=== PATIENT | female | born 1985 | race Two or more races ===

== ENCOUNTER 2019-06-11 11:11 | Emergency (ER) | payer MEDICAID ==
[~2019-06-11] VITALS: Ht 154.9 cm; Wt 63.0 kg
--- NOTE | 2019-06-11 12:07 | NUR ---
ED Nurse Note: PT JUST PLACED IN ROOM BY TRIAGE NURSE. PT WALKED IN TO ER TODAY FROM HOME. AOX4. PT C/O INTERMITTENT RIGHT UPPER QUADRANT PAIN, 6/10. PT DENIES ANY PAIN AT THIS TIME. PT DENIES NAUSEA, VOMITING, OR DIARRHEA. ACTIVE BOWEL SOUNDS IN ALL QUADRANTS. ABDOMEN NONDISTENDED AND NONTENDER TO PALPATION. LAST BM X THIS AM WHICH PT STATES WAS FORMED.
[2019-06-11 12:10] VITALS: BP 124/88
--- NOTE | 2019-06-11 12:28 | Emergency Room Report ---
History of Present Illness General Chief Complaint: Abdominal Pain Source: Patient Present Illness HPI 33-year-old female presents to the emergency department complaining of 4-day history of right upper abdominal pain that comes and goes. Patient reports currently she has a 2 out of 10 severity however intermittently she will have 6- 7 out of 10 in severity discomfort in the right upper quadrant. Patient denies changes with oral intake she reports some nausea denies vomiting denies blood in the stool or black tarry stools. Patient denies constipation or diarrhea. Patient does report possibility of being she is currently actively trying to be . Denies dysuria, hematuria or urinary frequency. Patient denies fevers, chills, severe abdominal tenderness, recent travel or ill contacts with similar symptoms. Denies surgical history of the abdomen. No other aggravating or relieving factors. Allergies: Coded Allergies: No Known Allergies (Unverified , 06/11/19) Patient History Past Medical History: see triage record Past Surgical History: none Pertinent Family History: none Last Menstrual Period: 05/14/19 Reviewed Nursing Documentation: PMH: Agreed; PSxH: Agreed Nursing Documentation-PMH Past Medical History: No Stated History Review of Systems All Other Systems: negative except mentioned in HPI Physical Exam Vital Signs Date Time Temp Pulse Resp B/P (MAP) Pulse Ox O2 Delivery O2 Flow Rate FiO2 06/11/19 11:24 98.2 85 18 128/93 (105) 98 Room Air Sp02 EP Interpretation: reviewed, normal General Appearance: no apparent distress, alert, GCS 15, non-toxic Head: normocephalic, atraumatic Eyes: bilateral eye normal inspection, bilateral eye PERRL ENT: hearing grossly normal, normal voice Neck: full range of motion Respiratory: lungs clear, normal breath sounds, speaking full sentences Cardiovascular #1: regular rate, rhythm Gastrointestinal: normal bowel sounds, non tender, soft, non-distended, no guarding Rectal: deferred Genitourinary: normal inspection, no CVA tenderness Musculoskeletal: back normal, gait/station normal, normal range of motion, non- tender Neurologic: alert, oriented x3, responsive, motor strength/tone normal, sensory intact, speech normal, grossly normal Psychiatric: judgement/insight normal Skin: no rash Medical Decision Making PA Attestation Dr. Mcwilliams is my supervising Physician whom patient management has been discussed with. Diagnostic Impression: Primary Impression: Abdominal pain Qualified Codes: R10.11 - Right upper quadrant pain Additional Impression: UTI (urinary tract infection) Qualified Codes: N30.01 - Acute cystitis with hematuria ER Course 33-year-old female presents to the emergency department complaining of 4-day history of right upper abdominal pain that comes and goes. Patient reports currently she has a 2 out of 10 severity however intermittently she will have 6- 7 out of 10 in severity discomfort in the right upper quadrant. Patient denies changes with oral intake she reports some nausea denies vomiting denies blood in the stool or black tarry stools. Patient denies constipation or diarrhea. Patient does report possibility of being she is currently actively trying to be . Denies dysuria, hematuria or urinary frequency. Patient denies fevers, chills, severe abdominal tenderness, recent travel or ill contacts with similar symptoms. Denies surgical history of the abdomen. No other aggravating or relieving factors. Ddx considered but are not limited to Diverticulitis, acute appy, diarrhea,UC, PUD, GE, pancreatitis, gallstone, ovarian torsion, ectopic , PID tubo-ovarian abscess. Vital signs: are WNL, pt. is afebrile H&PE are most consistent with Possible Gallbladder etiology, NAD, non-toxic in appearance. No evidence to suggest significant dehydration. Will r/o ORDERS: -CBC, CMP, LIPASE: WBC's of 12.9 otherwise WNL -UA: Consistent with UTI- TNTC WBC's and RBC's. moderate bacteria -URINE HCG:Negative - Abdominal US Complete: WNL ED INTERVENTIONS: - none. -I do not identify an emergent condition at this time. With current presentation , pt. is stable for close outpatient follow up and conservative treatment. D/ w pt. to return promptly to ED with worsening or new symptoms.- Pt. verbalizes' understanding and agreement with proposed treatment plan. DISCHARGE: At this time pt. is stable for d/c to home. Will provide printed patient care instructions, and any necessary prescriptions. Care plan and follow up instructions have been discussed with the patient prior to discharge. Labs Test 06/11/19 12:26 White Blood Count 12.9 K/UL (4.8-10.8) Red Blood Count 4.86 M/UL (4.20-5.40) Hemoglobin 15.1 G/DL (12.0-16.0) Hematocrit 44.8 % (37.0-47.0) Mean Corpuscular Volume 92 FL (80-99) Mean Corpuscular Hemoglobin 31.1 PG (27.0-31.0) Mean Corpuscular Hemoglobin Concent 33.7 G/DL (32.0-36.0) Red Cell Distribution Width 11.0 % (11.6-14.8) Platelet Count 282 K/UL (150-450) Mean Platelet Volume 6.3 FL (6.5-10.1) Neutrophils (%) (Auto) 81.6 % (45.0-75.0) Lymphocytes (%) (Auto) 12.9 % (20.0-45.0) Monocytes (%) (Auto) 4.8 % (1.0-10.0) Eosinophils (%) (Auto) 0.2 % (0.0-3.0) Basophils (%) (Auto) 0.5 % (0.0-2.0) Urine Color Pale yellow Urine Appearance Cloudy Urine pH 6 (4.5-8.0) Urine Specific [place] 1.015 (1.005-1.035) Urine Protein Negative (NEGATIVE) Urine Glucose (UA) Negative (NEGATIVE) Urine Ketones Negative (NEGATIVE) Urine Blood 5+ (NEGATIVE) Urine Nitrite Negative (NEGATIVE) Urine Bilirubin Negative (NEGATIVE) Urine Urobilinogen Normal MG/DL (0.0-1.0) Urine Leukocyte Esterase 3+ (NEGATIVE) Urine RBC Tntc /HPF (0 - 2) Urine WBC Tntc /HPF (0 - 2) Urine Squamous Epithelial Cells Many /LPF (NONE/OCC) Urine Bacteria Moderate /HPF (NONE) Urine HCG, Qualitative Negative (NEGATIVE) Sodium Level 139 MMOL/L (136-145) Potassium Level 3.8 MMOL/L (3.5-5.1) Chloride Level 102 MMOL/L (98-107) Carbon Dioxide Level 27 MMOL/L (21-32) Anion Gap 10 mmol/L (5-15) Blood Urea Nitrogen 12 mg/dL (7-18) Creatinine 0.6 MG/DL (0.55-1.30) Estimat Glomerular Filtration Rate > 60 mL/min (>60) Glucose Level 99 MG/DL (74-106) Calcium Level 9.7 MG/DL (8.5-10.1) Total Bilirubin 0.6 MG/DL (0.2-1.0) Aspartate Amino Transf (AST/SGOT) 17 U/L (15-37) Alanine Aminotransferase (ALT/SGPT) 15 U/L (12-78) Alkaline Phosphatase 126 U/L (46-116) Total Protein 8.4 G/DL (6.4-8.2) Albumin 4.4 G/DL (3.4-5.0) Globulin 4.0 g/dL Albumin/Globulin Ratio 1.1 (1.0-2.7) Lipase 125 U/L (73-393) CT/MRI/US Diagnostic Results CT/MRI/US Diagnostic Results : Imaging Test Ordered: ABD US Complete Impression "Impression: Negative " -Per official radiology report- Please see report for specific details. Last Vital Signs Date Time Temp Pulse Resp B/P (MAP) Pulse Ox O2 Delivery O2 Flow Rate FiO2 06/11/19 12:10 82 16 Room Air 06/11/19 12:10 98.4 124/88 97 Disposition: HOME, SELF-CARE Condition: Stable Scripts Nitrofurantoin Monohyd/M-Cryst* (MACROBID 100 MG*) 100 Mg Capsule 100 MG ORAL EVERY 12 HOURS for 5 Days, #10 CAP Prov: Catie Ladd 06/11/19 Patient Instructions: Abdominal Pain, Adult, Urinary Tract Infection, Easy-to- Read Additional Instructions: Take medications as directed. Follow up with a Primary Care Provider in 3-5 days, even if your symptoms have resolved. --Please review list of primary care clinics, if you do not already have a primary care provider Return sooner to ED if new symptoms occur, or current symptoms become worse. - Please note that this Emergency Department Report was dictated using Feedgenhuman resource statistician technology software, occasionally this can lead to erroneous entry secondary to interpretation by the dictation equipment. Catie Ladd Jun 11, 2019 12:28
[2019-06-11 12:44] LABS: BASOPHILS % (AUTO) 0.5 % (0.0-2.0); EOSINOPHILS % (AUTO) 0.2 % (0.0-3.0); HEMATOCRIT 44.8 % (37.0-47.0); HEMOGLOBIN 15.1 G/DL (12.0-16.0); LYMPHOCYTES % (AUTO) 12.9 % (20.0-45.0); MEAN CORPUSCULAR VOLUME 92 FL (80-99); MONOCYTES % (AUTO) 4.8 % (1.0-10.0); NEUTROPHILS % (AUTO) 81.6 % (45.0-75.0); PLATELET COUNT 282 K/UL (150-450); RED BLOOD COUNT 4.86 M/UL (4.20-5.40); WHITE BLOOD COUNT 12.9 K/UL (4.8-10.8)
[2019-06-11 12:55] LABS: ANION GAP 10 mmol/L (5-15); BLOOD UREA NITROGEN 12 mg/dL (7-18); CALCIUM 9.7 MG/DL (8.5-10.1); CARBON DIOXIDE 27 MMOL/L (21-32); CHLORIDE 102 MMOL/L (98-107); CREATININE 0.6 MG/DL (0.55-1.30); POTASSIUM 3.8 MMOL/L (3.5-5.1); SODIUM 139 MMOL/L (136-145)
[2019-06-11 12:59] LABS: ALANINE AMINOTRANSFERASE 15 U/L (12-78); ALBUMIN 4.4 G/DL (3.4-5.0); ALBUMIN/GLOBULIN RATIO 1.1 (1.0-2.7); ALKALINE PHOSPHATASE 126 U/L (46-116); ASPARTATE AMINO TRANSFERASE 17 U/L (15-37); BILIRUBIN,TOTAL 0.6 MG/DL (0.2-1.0)
--- NOTE | 2019-06-11 13:00 | NUR ---
ED Nurse Note: US AT BEDSIDE.
[2019-06-11 13:07] LABS: APPEARANCE,URINE CLOUDY; BILIRUBIN, URINE NEGATIVE (NEGATIVE); COLOR,URINE PALE YELLOW; GLUCOSE, URINE (UA) NEGATIVE (NEGATIVE); KETONES,URINE NEGATIVE (NEGATIVE); LEUKOCYTE ESTERASE ,URINE 3+ (NEGATIVE); NITRITE,URINE NEGATIVE (NEGATIVE); PH,URINE 6 (4.5-8.0); PROTEIN,URINE NEGATIVE (NEGATIVE); UROBILINOGEN,URINE NORMAL MG/DL (0.0-1.0)
[2019-06-11] MEDS ORDERED: NITROFURANTOIN100 M2 ORAL (13:41)
--- NOTE | 2019-06-11 13:55 | NUR ---
ED Nurse Note: PT LAYING PEACEFULLY IN BED IN NAD. AOX4. PRESCRIPTIONS AND DISCHARGE PAPERWORK EXPLAINED TO PT. PT VERBALIZES UNDERSTANDING AND ALL QUESTIONS ANSWERED. PRESCRIPTION AND DISCHARGE PAPERWORK GIVEN TO PT, IV AND ID WRISTBAND REMOVED. PT WALKED OUT OF ER WITH STEADY GAIT AND ALL BELONGINGS.
[2019-06-11 13:56] VITALS: BP 118/82
--- NOTE | 2019-06-11 14:19 | Diagnostic Imaging Report ---
Indication: Abdominal pain Technique: Ly-scale and duplex images of the upper abdomen were obtained Comparison: none Findings: Gallbladder is unremarkable, without stones, wall thickening, nor pericholecystic fluid. Sonographic Patterson's sign is negative. Common bile duct measures 3 mm in diameter. No intrahepatic biliary ductal dilatation. Liver demonstrates normal echogenicity, no focal abnormality. Portal vein and hepatic veins are patent. Pancreas is unremarkable. Spleen is unremarkable. Left kidney measures 11.8 cm in length. Right kidney measures 11.8 cm length. Both kidneys demonstrate normal echogenicity. There is no hydronephrosis. No focal abnormality . Non-aneurysmal abdominal aorta . Impression: Negative
== END 2019-06-11 13:57 | disposition home or self-care (01) ==
LOC: EMR 12:25
DX: N30.01 Acute cystitis with hematuria (principal); R10.11 Right upper quadrant pain
CPT/HCPCS: 36415; 76700; 80053; 81003; 81025; 83690; 85025; 87086; 99284

== ENCOUNTER 2019-06-27 23:09 | Emergency (ER) | payer MEDICAID ==
[~2019-06-27] VITALS: Ht 154.9 cm; Wt 63.0 kg
[~2019-06-27 23:09] MED LIST: NITROFURANTOIN100 M2 ORAL
[2019-06-27 23:20] VITALS: BP 122/83
--- NOTE | 2019-06-27 23:23 | NUR ---
ED Nurse Note: Marianne walked in to ER c/o right upper abdominal pain 05/23. AAO x4, VSS at this time, skin is dry warm to touch. Stated that may be .
[2019-06-27] MEDS ORDERED: ACETAMINOPHEN500 M5 ORAL (23:37)
[2019-06-27] MEDS ORDERED: NAPROXEN250 MG ORAL (23:37)
--- NOTE | 2019-06-27 23:37 | Emergency Room Report ---
History of Present Illness General Chief Complaint: Abdominal Pain Source: Patient Present Illness HPI 33-year-old female presents with right upper quadrant that comes and goes for the past 1 month, patient had a negative work-up with negative ultrasound and negative labs, 1 month ago, patient states that she has clinic follow-up in 2 days, she denies any fevers chills chest pain shortness of breath, she endorses a sharp right upper quadrant pain that comes and goes no aggravating or alleviating factors, severity is severe when it starts, lasting hours. Allergies: Coded Allergies: No Known Allergies (Unverified , 06/11/19) Patient History Past Medical History: see triage record Last Menstrual Period: 05/18/19 Reviewed Nursing Documentation: PMH: Agreed; PSxH: Agreed Nursing Documentation-PMH Past Medical History: No Stated History Review of Systems All Other Systems: negative except mentioned in HPI Physical Exam Vital Signs Date Time Temp Pulse Resp B/P (MAP) Pulse Ox O2 Delivery O2 Flow Rate FiO2 06/27/19 23:12 98.1 83 16 122/83 (96) 99 Room Air Sp02 EP Interpretation: reviewed, normal General Appearance: well appearing, no apparent distress, alert Head: normocephalic, atraumatic Eyes: bilateral eye PERRL, bilateral eye EOMI ENT: uvula midline, moist mucus membranes Neck: supple, thyroid normal, supple/symm/no masses Respiratory: lungs clear, no respiratory distress, no retraction, no accessory muscle use Cardiovascular #1: normal peripheral pulses, regular rate, rhythm, no edema, no gallop, no murmur Gastrointestinal: non tender, soft, no guarding, no rebound Musculoskeletal: normal inspection Neurologic: alert, oriented x3 Psychiatric: mood/affect normal Skin: no rash, warm/dry Medical Decision Making Diagnostic Impression: Primary Impression: Biliary colic symptom ER Course 33-year-old female presents with right upper quadrant pain that comes and goes, [id number] ultrasound was conducted shows no evidence of gallbladder wall thickening, no pericholecystic fluid, no stones in the gallbladder, patient is currently pain-free, patient has clinic follow-up in 2 days, patient has no pain in the ED, will change her pain regimen, patient with a negative work-up 1 month ago with negative ultrasound, counseled patient to follow-up with GI, and a possible surgeon for removal of her gallbladder disposition home with return precautions Also found to have a positive , patient counseled not to take ibuprofen , can only take Tylenol, patient states she will follow-up with her doctor return precautions discussed patient is not having any lower abdominal pain. Laboratory Tests Test 06/27/19 23:25 Urine HCG, Qualitative Positive (NEGATIVE) Last Vital Signs Date Time Temp Pulse Resp B/P (MAP) Pulse Ox O2 Delivery O2 Flow Rate FiO2 06/27/19 23:20 83 16 Room Air 06/27/19 23:20 98.1 122/83 99 Disposition: HOME, SELF-CARE Condition: Stable Scripts Acetaminophen (Acetaminophen) 500 Mg Tablet 1000 MG ORAL Q8HR for PAIN, #60 TAB Prov: Aneesh Villa MD 06/27/19 Referrals: [facility] Alvarado [facility] Patient Instructions: Abdominal Pain, Adult Additional Instructions: The patient was provided with discharge instructions, notified to follow-up with a primary care doctor and or specialist in the next 24-48 hours, and to return to the ED if they have worsening of their symptoms. Please note that this report is being documented using Synapse technology. This can lead to erroneous entry secondary to incorrect interpretation by the dictating instrument. FOLLOW-UP WITH GASTROENTEROLOGY SPECIALIST AND GENERAL SURGEON Aneesh Hanson MD Jun 27, 2019 23:37
[2019-06-27 23:48] VITALS: BP 122/83
--- NOTE | 2019-06-27 23:48 | NUR ---
ED Nurse Note: Pt cleared by health care Provider for discharge. DC instructions/prescription was given and explained to pt and verbalized understanding of teachings. All medical deviecs such as ID band removed. Pt is AAO x4, ambulatory and left with all personal belongings.
== END 2019-06-27 23:49 | disposition home or self-care (01) ==
LOC: EMR 23:20
DX: K80.50 Calculus of bile duct without cholangitis or cholecystitis without obstruction (principal)
CPT/HCPCS: 81025; 99282